=== PATIENT | female | born 2000 | race Caucasian/White ===

== ENCOUNTER 2020-01-08 01:12 | Emergency (ER) | payer OTHER ==
--- NOTE | 2020-01-08 01:17 | ED Physician Documentation ---
History of Present Illness - Stated complaint Stated Complaint: ARMPIT BUMP - History obtained from History obtained from: Patient (19 YO AD USN F w cc of left armpit redness for 10 days presents for evaluation. has not tried any treatment prior to arrival, has not been to medical at [facility] for evaluation. denies fevers, denies drainage. denies hx of MRSA.) Review of Systems Constitutional: reports: Reviewed and negative Eyes: reports: Reviewed and negative Ears: reports: Reviewed and negative Nose: reports: Reviewed and negative Throat: reports: Reviewed and negative Cardiac: reports: Reviewed and negative Respiratory: reports: Reviewed and negative GI: reports: Reviewed and negative : reports: Reviewed and negative Skin: reports: Lesions Musculoskeletal: reports: Reviewed and negative Neurologic: reports: Reviewed and negative Psychiatric: reports: Reviewed and negative Endocrine: reports: Reviewed and negative Immunocompromised: reports: Reviewed and negative PD PAST MEDICAL HISTORY - Present Medications Home Medications: Ambulatory Orders Medication Instructions Recorded Confirmed Cephalexin [Keflex] 500 mg PO QID 10 Days #40 capsule 01/08/20 PD ED PE NORMAL - Vitals Vital signs reviewed: Yes - General General: Alert and oriented X 3, No acute distress - HEENT HEENT: PERRL - Neck Neck: Supple, no meningeal sign - Cardiac Cardiac: RRR, No murmur - Respiratory Respiratory: Clear bilaterally - Abdomen Abdomen: Normal bowel sounds, Soft, Non tender, Non distended - Derm Derm: Warm and dry, Other (left axilla, 1x1 cm of erythema without fluctuance or induration, no axillary lad, no supraclavicular lad, mildly tender, minimal swelling.) - Extremities Extremities: No deformity - Neuro Neuro: Alert and oriented X 3 - Psych Psych: Normal mood, Normal affect PD MEDICAL DECISION MAKING - ED course Complexity details: considered differential (folliculitis, cellulitis, early development of possible abscess. will treat initially with oral antibiotics with keflex. patient has follow up appointment in 6 hours at .), d/w patient Departure - Departure Disposition: 01 Home, Self Care Clinical Impression: Folliculitis Cellulitis Qualifiers: Site of cellulitis: extremity Site of cellulitis of extremity: axilla Laterality: left Qualified Code(s): L03.112 - Cellulitis of left axilla Condition: Stable Instructions: ED Infec Skin Cellulitis Follow-Up: your, doctor [Other] - 01/08/20 Prescriptions: Cephalexin [Keflex] 500 mg PO QID 10 Days #40 capsule Comments: Take antibiotics as directed. Follow-up at today at 7 am for a recheck.
[2020-01-08 01:21] VITALS: BP 119/64
[2020-01-08] MEDS ORDERED: cephALEXin 250 MG CAPSULE PO STA (01:21)
== END 2020-01-08 01:35 | disposition home or self-care (01) ==
LOC: ED 01:12
DX: L03.112 Cellulitis of left axilla (principal)
CPT/HCPCS: 99282; 99284; A9270

== ENCOUNTER 2020-08-16 00:59 | Emergency (ER) | payer OTHER ==
--- NOTE | 2020-08-16 01:47 | ED Physician Documentation ---
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 Patient states that she had a migraine headache while at work and decided to take Imitrex after the prescription was filled for the first time but then about 15 minutes after taking the medication she began to experience nausea which has now resolved. Her headache is also gone away however she is still slightly lightheaded with right hand tremor. She denies vision changes, fevers, facial droop, focal weakness, other neuro deficits. She states that her girlfriend said that her voice was slurred earlier but has now improved. Patient has a referral for CT of the head at our hospital this upcoming week. Review of Systems Ten Systems: 10 systems reviewed and negative Constitutional: denies: Fever, Chills Eyes: denies: Loss of vision Ears: denies: Loss of hearing, Tinnitus/ringing GI: reports: Nausea. denies: Vomiting Neurologic: reports: Generalized weakness, Headache. 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 : None HEENT: None Psych: None Musculoskeletal: None Derm: None - Past Surgical History Past Surgical History: No - Present Medications Home Medications: Ambulatory Orders Medication Instructions Recorded Confirmed Naproxen [EC-Naprosyn] 500 mg PO BID 08/16/20 08/16/20 Sumatriptan Succinate [Imitrex] 100 mg PO DAILY PRN 08/16/20 08/16/20 - Allergies Allergies/Adverse Reactions: Allergies Allergy/AdvReac Type Severity Reaction Status Date / Time No Known Drug Allergies Allergy Verified 08/16/20 01:11 - Social History Does the pt smoke?: No Smoking Status: Never smoker Does the pt drink ETOH?: No Does the pt have substance abuse?: No - Immunizations Immunizations are current?: Yes - POLST Patient has POLST: No PD ED PE NORMAL - Vitals Vital signs reviewed: Yes - General General: Alert and oriented X 3, No acute distress, Well developed/nourished - HEENT HEENT: Atraumatic, PERRL, EOMI, Ears normal, Moist mucous membranes, Pharynx benign - Neck Neck: Supple, no meningeal sign - Derm Derm: Normal color, Warm and dry - Extremities Extremities: No deformity - Neuro Neuro: Alert and oriented X 3, kier boiler 2-12 intact, No motor deficit, No sensory deficit, Normal speech, Other (normal strength, sensation, cerebellar testing, and gait. R hand tremor) - Psych Psych: Normal mood, Normal affect Results - Vitals Vitals: Vital Signs - 24 hr 08/16/20 08/16/20 01:00 02:12 Temperature 36.3 C L Heart Rate 83 90 Respiratory 18 14 Rate Blood Pressure 120/66 120/72 O2 Saturation 100 100 Oxygen O2 Source Room air - EKG (time done) 0203 Rate: Rate (enter#) (69) Rhythm: NSR [place]: Normal Intervals: Normal VA QRS: Normal Ischemia: Normal ST segments Other comments: Other comments (normal qt/qtc) PD MEDICAL DECISION MAKING - ED course ED course: 20-year-old woman with history of TBI and migraines presents status post first time taking Imitrex with nausea, dizziness and hand tremor. Symptoms appear to be subsiding in the emergency room and she is reassured by a normal neurologic exam with the exception of hand tremor. CT head offered to patient was declined since she is planning on having a CT this upcoming week once her referral goes through. Patient required oral propanolol for hand tremor. Return precautions given. Patient will follow up with her primary doctor this week. Departure - Departure Disposition: 01 Home, Self Care Clinical Impression: Tremor of right hand, Lightheadedness, Nausea Condition: Good Instructions: Sumatriptan tablets Comments: You were seen in the emergency department for nausea, hand tremor, and dizziness after taking imitrex for the first time. Your symptoms appear to be improving and your neurologic exam is normal. You should follow up with your doctor, Dr. Garcia this week. Do not take imitrex until cleared by your doctor. Return to the emergency department for any new or worsening symptoms or other concerns. Discharge Date/Time: 08/16/20 02:12
[2020-08-16 02:13] VITALS: BP 120/72
== END 2020-08-16 02:12 | disposition home or self-care (01) ==
LOC: ED 00:59
DX: G25.1 Drug-induced tremor (principal); R42 Dizziness and giddiness; R11.0 Nausea; T39.8X5A Adverse effect of other nonopioid analgesics and antipyretics, not elsewhere classified, initial encounter; Z87.820 Personal history of traumatic brain injury
CPT/HCPCS: 93005; 99283; 99284

== ENCOUNTER 2020-08-30 13:12 | Outpatient (CLI) | payer OTHER ==
--- NOTE | 2020-08-30 14:31 | MRI Report ---
PROCEDURE: Brain W/O INDICATIONS: HEADACHE TECHNIQUE: Noncontrast axial T1 spin echo, axial T2 fast spin echo, sagittal and axial FLAIR, coronal T2 fast sp in echo, axial gradient echo, axial diffusion and ADC through the brain. COMPARISON: None. FINDINGS: Image quality: Excellent. CSF Spaces: Basal cisterns are patent. No extra-axial fluid collections. Ventricles are normal in size and shape. Brain: No intracranial masses or hemorrhage. Klein/white matter interface is normal. Brainstem appe ars normal. Diffusion-weighted images demonstrate no acute ischemic insult. No chronic ischemic ins ults. Normal intravascular flow voids are present. Skull and face: Calvarium has normal marrow signal. Orbits appear normal. Sinuses: Sinuses and mastoids are clear. IMPRESSION: Negative examination as above Reviewed by: Red Mendoza MD on 08/30/2020 2:29 PM PST Approved by: Red Mendoza MD on 08/30/2020 2:29 PM PST Station ID: [id number]
== END 2020-08-30 13:13 | disposition home or self-care (01) ==
LOC: DI 13:12
DX: R51.9 Headache, unspecified (principal)

== ENCOUNTER 2020-10-03 14:35 | Outpatient (CLI) | payer OTHER ==
--- NOTE | 2020-10-03 15:06 | XRAY Report ---
PROCEDURE: Finger(s) LT INDICATIONS: SPRAIN OF LEFT INDEX FINGER TECHNIQUE: PA view of the hand and 2 views of the left index finger obtained. COMPARISON: None. FINDINGS: Bones: No acute fractures or dislocations. No suspicious bony lesions. Soft tissues: No suspicious soft tissue calcifications. IMPRESSION: No acute osseous abnormality. If there is clinical concern or persistent symptoms, additional imaging such as repeat radiographs or advanced imaging (e.g. CT, MRI) may be helpful for further evaluation. Reviewed by: Salazar Yoder MD on 10/03/2020 3:04 PM PDT Approved by: Salazar Yoder MD on 10/03/2020 3:04 PM PDT Station ID: [id number]
== END 2020-10-03 14:36 | disposition home or self-care (01) ==
LOC: DI.S 14:35
PROVIDERS: ATTEND Emergency Medicine
DX: S63.611A Unspecified sprain of left index finger, initial encounter (principal)